=== PATIENT | male | born 1965 | race Caucasian/White ===

== ENCOUNTER 2020-07-21 20:19 | Emergency (ER) | payer MEDICAID, OTHER ==
[~2020-07-21] VITALS: Ht 182.9 cm; Wt 124.7 kg
[2020-07-21 21:14] VITALS: BP 154/76
[2020-07-21] MEDS ORDERED: TETANUS-DIPTH-ACEL PERTUSSIS 0.5ML SYR Tdap IM ONE (21:15)
== END 2020-07-21 21:55 | disposition home or self-care (01) ==
LOC: ER 20:19
DX: T63.301A Toxic effect of unspecified spider venom, accidental (unintentional), initial encounter (principal); S80.822A Blister (nonthermal), left lower leg, initial encounter; L08.9 Local infection of the skin and subcutaneous tissue, unspecified; L29.9 Pruritus, unspecified; I10 Essential (primary) hypertension; X58.XXXA Exposure to other specified factors, initial encounter; Y93.89 Activity, other specified; Y92.89 Other specified places as the place of occurrence of the external cause; Y99.8 Other external cause status
CPT/HCPCS: 90471; 90715

== ENCOUNTER 2020-07-25 05:30 | Inpatient (IN) | payer OTHER ==
[~2020-07-25] VITALS: Ht 182.9 cm; Wt 122.5 kg
[2020-07-25 06:53] LABS: Basophils # (auto) 0.1 10 ^3/uL (0-0.2); Basophils % (auto) 0.7 % (0.0-2.0); Eosinophils # (auto) 0.8 10 ^3/uL (0-0.8); Eosinophils % (auto) 7.6 % (0.0-7.0); Hemoglobin 15.3 g/dL (13.5-17.5); Lymphocytes # (auto) 1.8 10 ^3/uL (0.4-5.4); Lymphocytes % (auto) 16.3 % (10.0-50.0); Mean Corpuscular Hemoglobin 29.9 pg (28.0-32.0); Monocytes # (auto) 0.9 10 ^3/uL (0-1.3); Monocytes % (auto) 8.3 % (0.0-12.0); Neutrophils # (auto) 7.3 10 ^3/uL (1.6-8.6); Neutrophils % (auto) 67.1 % (37.0-80.0); Nucleated Red Blood Cells % 1.2 %; Platelet Count (auto) 286 10^3/uL (140-450); Red Blood Cells 5.12 10^6/uL (4.5-5.90); Red Cell Distribution Width 13.7 % (11.8-14.3); White Blood Cell 10.9 10^3/uL (4.4-10.8)
[2020-07-25] MEDS ORDERED: cefTRIAXone 1GM/50ML D5W 50 ML IV ONE (07:00)
[2020-07-25] MEDS ORDERED: CLINDAMYCIN 600MG IV 50 ML IV ONE (07:00)
[2020-07-25 07:06] LABS: Albumin 3.9 g/dL (3.4-5.0); Calcium 9.1 mg/dL (8.5-10.1); Potassium 3.9 mmol/L (3.5-5.1)
[2020-07-25 07:09] LABS: BUN/Creatinine Ratio 18.2; Bilirubin, Total 0.4 mg/dL (0.2-1.0)
[2020-07-25] MEDS ORDERED: IOHEXOL 300 MG/ML 100ML BOTTLE IJ ONE (07:36)
[2020-07-25 09:35] LABS: Lactic Acid w/Reflex 2.9 mmol/L (0.4-2.0)
[2020-07-25] MEDS ORDERED: cefTRIAXone SOD 1,000 MG VL ONE (09:36)
[2020-07-25 11:43] LABS: Urine Bacteria NONE SEEN /hpf (None Seen); Urine Blood Negative /uL (Negative); Urine WBC <1 /hpf (0 - 3)
[2020-07-25 11:50] LABS: Urine Specific Gravity > 1.050 (1.001-1.035)
[2020-07-25] MEDS: SODIUM CHLORIDE 0.9% 1,000 ML IV SCH ×2 (12:41→16:49)
[2020-07-25] MEDS ORDERED: PROMETHAZINE HCL 25 MG/ML 1ML IV PRN (12:45)
[2020-07-25] MEDS ORDERED: levoFLOXacin 500MG 100 ML IV ONE (12:45)
[2020-07-25] MEDS ORDERED: TEMAZEPAM 15 MG CAP PO PRN (12:45)
[2020-07-25] MEDS ORDERED: MORPHINE SULF INJ 2 MG/ML SYRINGE 1ML IV PRN (12:45)
[2020-07-25] MEDS ORDERED: traMADol HCL 50 MG TAB PO PRN (12:45)
[2020-07-25] MEDS ORDERED: LISI40TA11 PO (13:05)
[2020-07-25] MEDS ORDERED: DOXY-332 PO (13:05)
[2020-07-25] MEDS ORDERED: TRI05TP TOP (13:08)
[2020-07-25 13:50] LABS: Albumin 3.7 g/dL (3.4-5.0); Calcium 8.9 mg/dL (8.5-10.1); Potassium 3.7 mmol/L (3.5-5.1)
[2020-07-25 13:53] LABS: BUN/Creatinine Ratio 16.2; Bilirubin, Total 0.4 mg/dL (0.2-1.0); Total Protein 7.6 g/dL (6.4-8.2)
[2020-07-25 15:30] VITALS: BP 117/89
[2020-07-25] MEDS: CLINDAMYCIN 600MG IV 50 ML IV SCH ×2 (16:49→22:02)
[2020-07-25 17:00] VITALS: BP 117/89
[2020-07-25 20:00] VITALS: BP 124/77
[2020-07-25 22:00] VITALS: BP 124/77
[2020-07-25] MEDS: FAMOTIDINE 20 MG TAB PO SCH (22:02)
[2020-07-26 05:00] VITALS: BP 131/83
[2020-07-26] MEDS: CLINDAMYCIN 600MG IV 50 ML IV SCH ×3 (06:39→22:30)
[2020-07-26 09:00] VITALS: BP 144/79
[2020-07-26] MEDS: SODIUM CHLORIDE 0.9% 1,000 ML IV SCH ×2 (09:09→18:44)
[2020-07-26] MEDS: FAMOTIDINE 20 MG TAB PO SCH ×2 (11:46→22:30)
[2020-07-26] MEDS: levoFLOXacin 500MG 100 ML IV SCH (11:47)
[2020-07-26 13:00] VITALS: BP 127/71
[2020-07-26 17:00] VITALS: BP 135/89
[2020-07-26 22:00] VITALS: BP 129/84
[2020-07-27] MEDS: SODIUM CHLORIDE 0.9% 1,000 ML IV SCH (04:41)
[2020-07-27 05:00] VITALS: BP 129/78
[2020-07-27] MEDS: CLINDAMYCIN 600MG IV 50 ML IV SCH (05:25)
[2020-07-27 08:00] VITALS: BP 132/87
[2020-07-27 09:00] VITALS: BP 132/87
[2020-07-27] MEDS: levoFLOXacin 500MG 100 ML IV SCH (09:28)
[2020-07-27] MEDS: FAMOTIDINE 20 MG TAB PO SCH (09:28)
[2020-07-27 12:31] VITALS: BP 136/83
[2020-07-27 13:00] VITALS: BP 136/83
== END 2020-07-27 14:30 | disposition home or self-care (01) | DRG 383 ==
LOC: ER 05:30 → OVERFLOW 05:31 → CENTRAL 15:18
PROVIDERS: ADMIT Internal Medicine; ATTEND Internal Medicine
DX: L03.116 Cellulitis of left lower limb (principal); R65.10 Systemic inflammatory response syndrome (SIRS) of non-infectious origin without acute organ dysfunction; E66.9 Obesity, unspecified; K76.0 Fatty (change of) liver, not elsewhere classified; S80.862A Insect bite (nonvenomous), left lower leg, initial encounter; I10 Essential (primary) hypertension; W57.XXXA Bitten or stung by nonvenomous insect and other nonvenomous arthropods, initial encounter; Y93.89 Activity, other specified; Y92.89 Other specified places as the place of occurrence of the external cause; Y99.8 Other external cause status; Z68.36 Body mass index [BMI] 36.0-36.9, adult
CPT/HCPCS: 36415; 73701; 76705; 80053; 81001; 83605; 85025; 87040; 87081; 93971; 96361; 96365; 96367; G0378; J0696; J1956; J3490